=== PATIENT | male | born 1975 | race Caucasian/White ===

== ENCOUNTER → 2023-11-10 11:59 | Outpatient (REF) | payer BC, SELFPAY | LOC: HWRAD 11:59 | PROVIDERS: ATTENDING PHYSICIAN Internal Medicine | DX: M25.561 Pain in right knee (principal); S89.91XA Unspecified injury of right lower leg, initial encounter | CPT/HCPCS: 73564 ==

== ENCOUNTER → 2024-07-13 09:53 | Outpatient (REF) | payer BC, SELFPAY | LOC: HWRAD 09:53 | PROVIDERS: ATTENDING PHYSICIAN Internal Medicine | DX: M75.102 Unspecified rotator cuff tear or rupture of left shoulder, not specified as traumatic (principal) | CPT/HCPCS: 73030 ==